=== PATIENT | female | born 2005 | race Caucasian/White ===

== ENCOUNTER 2024-03-31 08:58 | Outpatient (CLI) | payer MEDICAID | END 2024-03-31 23:59 | disposition home or self-care (01) | LOC: MRI 08:58 | PROVIDERS: ATTEND Orthopaedic Surgery Pediatric Orthopaedic Surgery | DX: S93.422A Sprain of deltoid ligament of left ankle, initial encounter (principal); M89.9 Disorder of bone, unspecified; M24.172 Other articular cartilage disorders, left ankle; M25.572 Pain in left ankle and joints of left foot; G89.29 Other chronic pain; X58.XXXA Exposure to other specified factors, initial encounter; Y93.89 Activity, other specified; Y92.89 Other specified places as the place of occurrence of the external cause; Y99.8 Other external cause status | CPT/HCPCS: 73721 ==